=== PATIENT | female | born 1940 | race Caucasian/White ===

== ENCOUNTER 2016-08-20 17:17 | Inpatient (IN) | payer MEDICARE, MEDICAID ==
[~2016-08-20] VITALS: Ht 160 cm; Wt 70.3 kg
--- NOTE | ~2016-08-20 | PROC NOTE ---
[place], [place] PROCEDURE NOTE NAME: [facility]IS [facility]: [id number] UNIT #: [id number] ROOM: 503 DOCTOR: LILIAM RECINOS BIRTHDATE: [birth year] DOS: 08/26/2016 SUBJECTIVE: The patient is a pleasant 75-year-old female referred for modified barium swallow based on questionable aspiration. The patient currently has fever, chills, headache, cough, some abdominal pain. She reports that she chokes easily, yesterday at bedside, she reported she does not choke daily or weekly but she does have consistencies going down "wrong pipe". Chest x-ray indicated pathological condition of the lungs, it mentioned increased airspace. There was a note of right middle lobe pneumonia. She has a background history of sepsis, UTI, COPD, GERD, diabetes. She is currently on 1887 diet. The patient reports she has had three strokes in the past. Her last one was in June 2013. METHODS AND MATERIALS: The patient was viewed in the lateral plane for fluoroscopy and the study was done in conjunction with Dr. Swenson. She was able to follow conversation and commands. She was able to independently feed herself thin liquid via straw sugar free pudding via teaspoon and roll coated with barium. The patient was in a wheelchair. She was upright at 90 degrees and had no expressive language deficit. ORAL PHASE: The patient demonstrated adequate oral phase with all consistencies there was very mild delay in the initial oral preparation when she took a sip out of the straw, but this was suspected due to her unsureness of when to swallow. On sequential swallows of liquid via straw patient demonstrated timely adequate bolus formation transfer of a bolus in her tongue to push the bolus into the pharynx. Diagonal vertical mastication was noted on the solid she had good oral sensory awareness and no significant oral residue. PHARYNGEAL PHASE: The patient demonstrated what was judged by the METALLURGICAL ENGINEER has very slightly reduced laryngeal elevation; however, it did not affect airway protection or safety of the swallow. The patient demonstrated no penetration or aspiration during this modified barium swallow and no significant residue in the pharynx. RECOMMENDATIONS AND IMPRESSION: Based on the above, the patient demonstrated functional oral and pharyngeal phases with all consistencies noted above. Therapy is not recommended and diet modifications are not recommended at this time as she is currently on a regular diet and seems to be tolerating. [place], [place] PROCEDURE NOTE NAME: NAMRATA LUIS UNIT #: [id number] ROOM: 503 DOCTOR: LILIAM RECINOS BIRTHDATE: [birth year] LILIAM RECINOS CM:PROCNOTE:PROCEDURE NOTE 1037 [id number] LILIAM RECINOS
--- NOTE | ~2016-08-20 | PR ---
[place], [place] PROGRESS NOTE [id number] UNIT #: [id number] ROOM: 503 DOCTOR: LAKISHA ARSHAD MD BIRTHDATE: [birth year] DOS: 08/23/2016 REASON FOR FOLLOWUP: Persistent fever. SUBJECTIVE: The patient is still spiking fever, T-max of 101.4 overnight, dry cough. REVIEW OF SYSTEMS: Otherwise is negative, unless otherwise specified in the HPI. PHYSICAL EXAMINATION: VITAL SIGNS: Showed a temperature of 98.2, T-max of 101 overnight, heart rate of 110, blood pressure of 143/68, pulse ox of 100 on 2.5 liters of nasal cannula oxygen, respiratory rate of 20. GENERAL APPEARANCE: Awake, alert, oriented to time, place and person. No acute distress, no neck stiffness. HEENT: Oral cavity moist. NECK: Supple, no JVD. HEART: Regular rate and rhythm. S1, S2 normal. No murmurs, gallops or rubs. LUNGS: Clear to auscultation, equal bilaterally. ABDOMEN: Soft, nontender, nondistended. Bowel sounds heard. EXTREMITIES: Warm to touch. Pulses palpated bilaterally. ABDOMEN: Soft, nontender, no distention. Bowel sounds heard. No CVA tenderness. LABORATORY DATA: Reviewed. WBC of 14.3 on admission, 8.9 now, hemoglobin of 11.1, platelets 248. She has monocytosis. Sed rate 80. Urinalysis unremarkable. Chemistry showing a BUN of 11, creatinine of 0.96. Lactic acid was normal. DIAGNOSTIC DATA: Chest x-ray reviewed with emphysematous changes. CAT scan of the chest showing right middle lobe infiltrate versus atelectasis. ASSESSMENT AND PLAN: 1. Persistent fever. This is patient's third admission in the last three months again for symptoms of fever and increased frequency of urination with concerns for UTI. She had always been treated in the past with empiric antibiotics with improvement of some of her symptoms. Now, she is again admitted with the same. She used to work in a [employer] in the past and had negative TB test in the past. We will get TB QuantiFERON Gold test. If she can give us the sputum sample that would be great, but she states she is not able to do so as she only has a dry cough. We will also repeat blood cultures today now that she feels like she is spiking fever and she has chills. She had a CAT scan from April, which was unremarkable at that time. It is possible that this is just a viral infection on top of her COPD. The rapid influenza A and B is negative, but given the poor specificity of the rapid fluid test and other tests sent out, I would put her on Tamiflu presumptively for 5 days. 2. COPD. Thank you for this consult. I will continue to follow. [place], [place] PROGRESS NOTE NAME: NAMRATA LUIS Gregorio UNIT #: [id number] ROOM: [facility] DOCTOR: LAKISHA ARSHAD MD BIRTHDATE: [birth year] LAKISHA ARSHAD MD CM:PNTRANS 1708 [id number] LAKISHA ARSHAD MD 10/01/16 1402 interface
[~2016-08-20 17:17] MED LIST: AMOXICILLIN500 M2 PO; AMOXIL500 M1 PO; APIDRA SOLOS100 U/ML SC; ASPI-COR81 M1 PO; ASPIRIN81 M1 PO; CEFDINIR300 MG PO; CEFUROXIME AXE250 MG PO; CIPRO250 MG PO; CIPROFLOXACIN500 MG PO; CYMBALTA60 MG PO; DAYPRO600 M1 PO; EAC MC; GLIPIZIDE5 MG PO; GLYBURIDE1 CRY PO; GLYBURIDE1.25 MG PO; HYDROCODONE BIT1 T11 PO; KEFLEX500 MG PO; LISINOPRIL10 M1 PO; LISINOPRIL5 MG PO; METFORMIN500 MG PO; MOTRIN800 MG PO; NEURONTIN300 MG PO; NORCO 5-325 TA1 EACH PO; NYSTATIN100000 U/M PO; ONE TOUCH ULTRA SC; PEN-VEE K500 MG PO; PREDNICOT20 MG PO; PREDNISONE10 MG PO; ROBITUSSIN AC 110 ML PO; TEST STRIPS1 EACH DIAG; TOUJEO300 U/ML SC; TRAMADOL HCL50 MG PO; VENTOLIN H0.09 MG/AC INH; VICODIN 5/500 505 MG; VICODIN 5/500 505 MG PO; VICODIN 500 MG-1 TAB PO; VICTOZA 3-PAK6 MG/ML SC; VICTOZA6 MG/ML SC; VISTARIL25 M2 PO; VISTARIL50 MG PO; VITAMIN D31000 IU PO; VITAMIN D5000 UNIT PO; ZITHROMAX Z PA250 MG PO; ZOLOFT50 MG PO; [UNRECOGNIZED DRUG - SUPPLY] TP
[2016-08-20 17:23] VITALS: BP 179/74
[2016-08-20] MEDS ORDERED: TOUJEO300 U/ML SC (18:04)
[2016-08-20 18:06] LABS: BASO # 0.1 10*3/uL (0.0-0.1); BASO % 0.4 % (0.0-1.0); EOS # 0.2 10*3/uL (0.0-0.4); EOS % 1.1 % (1.0-4.0); HEMATOCRIT 37.9 % (37.0-47.0); HEMOGLOBIN 12.2 g/dl (12.0-16.0); IG # 0.1 10*3/uL (0.0-0.1); LYMPH # 1.6 10*3/uL (1.3-4.4); LYMPH % 11.4 % (27.0-41.0); MEAN CORPUSCULAR HGB CONC 32.2 g/dl (33.0-37.0); MEAN PLATELET VOLUME 9.8 fl (9.6-12.3); MONO % 7.4 % (3.0-9.0); NEUT # 10.8 10*3/uL (2.3-7.9); NEUT % 79.1 % (47.0-73.0); PLATELET COUNT AUTOMATED 203 10*3/uL (130-400); RED BLOOD COUNT 4.21 10*6/uL (4.10-5.10); RED CELL DISTRI WIDTH 13.2 % (0-14.5); WHITE BLOOD COUNT 13.7 10*3/uL (4.8-10.8)
[2016-08-20 18:16] LABS: INTERNATIONAL NORM RATIO 0.9 (2.0-3.5)
[2016-08-20 18:29] LABS: ALBUMIN 3.3 gm/dl (3.1-4.5); ALKALINE PHOSPHATASE 79 U/L (45-117); BILIRUBIN, TOTAL 0.3 mg/dl (0.2-1.0); BUN 14 mg/dl (7-24); CARBON DIOXIDE 31 mmol/L (21-32); CHLORIDE 98 mmol/L (98-107); EST GLOM FILT AFRICAN AMERICAN > 60 ml/min; GLUCOSE 172 mg/dL (65-99); POTASSIUM 3.8 mmol/L (3.5-5.1); SGOT/AST 10 IU/L (3-35); SGPT/ALT 15 U/L (12-78); SODIUM 137 mmol/L (136-145)
[2016-08-20 18:30] LABS: CKMB < 0.5 ng/ml (0.5-3.6); CPK 44 U/L (26-192); MAGNESIUM 1.5 mg/dL (1.5-2.1)
[2016-08-20 19:10] LABS: BILIRUBIN NEGATIVE (NEGATIVE); BLOOD TRACE-INTACT (NEGATIVE); CLARITY SL CLOUDY (CLEAR); COLOR YELLOW (YELLOW); GLUCOSE NEGATIVE (NEGATIVE); KETONE NEGATIVE (NEGATIVE); LEUKO ESTERASE 2+ (NEGATIVE); NITRITE NEGATIVE (NEGATIVE); PH 5.5 (5.0-9.0); PROTEIN NEGATIVE (NEGATIVE); SPECIFIC GRAVITY <= 1.005 (1.005-1.030); UROBILINOGEN 0.2 E.U./dl (0.2-1.0)
[2016-08-20 19:16] LABS: BACTERIA 2+; RBC 0-2 rbc/hpf (0-2); WBC 16-20 wbc/hpf (0-5)
[2016-08-20 19:17] LABS: URINE REFLEX COMMENT YES (NO)
[2016-08-20 19:31] VITALS: BP 127/54
[2016-08-20 20:23] VITALS: BP 129/43
[2016-08-21] VITALS: BP 145/56
[2016-08-21 00:52] LABS: CKMB < 0.5 ng/ml (0.5-3.6); CPK 47 U/L (26-192)
[2016-08-21 06:09] LABS: BASO % 0.3 % (0.0-1.0); EOS # 0.2 10*3/uL (0.0-0.4); EOS % 1.5 % (1.0-4.0); HEMATOCRIT 37.1 % (37.0-47.0); HEMOGLOBIN 11.6 g/dl (12.0-16.0); IG # 0.1 10*3/uL (0.0-0.1); LYMPH # 2.6 10*3/uL (1.3-4.4); LYMPH % 18.3 % (27.0-41.0); MEAN CELL VOLUME 91.8 fl (81.0-99.0); MEAN CORPUSCULAR HGB 28.7 pg (27.0-31.0); MEAN CORPUSCULAR HGB CONC 31.3 g/dl (33.0-37.0); MEAN PLATELET VOLUME 9.9 fl (9.6-12.3); MONO # 1.5 10*3/uL (0.1-1.0); MONO % 10.2 % (3.0-9.0); NEUT # 9.9 10*3/uL (2.3-7.9); PLATELET COUNT AUTOMATED 214 10*3/uL (130-400); RED BLOOD COUNT 4.04 10*6/uL (4.10-5.10); WHITE BLOOD COUNT 14.3 10*3/uL (4.8-10.8)
[2016-08-21 06:27] LABS: CPK 48 U/L (26-192)
[2016-08-21 06:29] LABS: CKMB < 0.5 ng/ml (0.5-3.6)
[2016-08-21 06:41] LABS: BUN 11 mg/dl (7-24); CARBON DIOXIDE 32 mmol/L (21-32); CHLORIDE 103 mmol/L (98-107); EST GLOM FILT AFRICAN AMERICAN > 60 ml/min; GLUCOSE 118 mg/dL (65-99); POTASSIUM 3.8 mmol/L (3.5-5.1); SODIUM 142 mmol/L (136-145)
[2016-08-21 06:51] LABS: PROTHROMBIN TIME 10.2 SECONDS (9.0-12.4)
[2016-08-21 08:00] VITALS: BP 144/58
[2016-08-21 12:00] VITALS: BP 149/55
[2016-08-21 12:34] LABS: CKMB < 0.5 ng/ml (0.5-3.6); CPK 50 U/L (26-192)
[2016-08-21 16:00] VITALS: BP 118/58
[2016-08-21 20:00] VITALS: BP 130/59
[2016-08-22] VITALS: BP 155/58
[2016-08-22 04:00] VITALS: BP 151/99
[2016-08-22 07:05] LABS: BASO % 0.3 % (0.0-1.0); EOS # 0.3 10*3/uL (0.0-0.4); EOS % 3.6 % (1.0-4.0); HEMATOCRIT 33.2 % (37.0-47.0); HEMOGLOBIN 10.2 g/dl (12.0-16.0); IG # 0.1 10*3/uL (0.0-0.1); LYMPH # 1.7 10*3/uL (1.3-4.4); LYMPH % 18.1 % (27.0-41.0); MEAN CORPUSCULAR HGB 28.6 pg (27.0-31.0); MEAN CORPUSCULAR HGB CONC 30.7 g/dl (33.0-37.0); MEAN PLATELET VOLUME 10.1 fl (9.6-12.3); MONO % 11.4 % (3.0-9.0); NEUT % 66.1 % (47.0-73.0); PLATELET COUNT AUTOMATED 220 10*3/uL (130-400); RED BLOOD COUNT 3.57 10*6/uL (4.10-5.10); RED CELL DISTRI WIDTH 13.1 % (0-14.5); WHITE BLOOD COUNT 9.1 10*3/uL (4.8-10.8)
[2016-08-22 08:00] VITALS: BP 128/60
[2016-08-22 12:00] VITALS: BP 136/80
[2016-08-22 16:00] VITALS: BP 146/51
[2016-08-22 20:00] VITALS: BP 150/50
[2016-08-23] VITALS: BP 104/51; BP 125/42
[2016-08-23 06:43] LABS: BASO % 0.3 % (0.0-1.0); EOS # 0.4 10*3/uL (0.0-0.4); EOS % 3.9 % (1.0-4.0); HEMATOCRIT 35.8 % (37.0-47.0); HEMOGLOBIN 11.1 g/dl (12.0-16.0); IG # 0.1 10*3/uL (0.0-0.1); LYMPH # 1.6 10*3/uL (1.3-4.4); LYMPH % 18.2 % (27.0-41.0); MEAN CELL VOLUME 92.5 fl (81.0-99.0); MEAN CORPUSCULAR HGB 28.7 pg (27.0-31.0); MEAN PLATELET VOLUME 9.9 fl (9.6-12.3); MONO # 1.1 10*3/uL (0.1-1.0); MONO % 12.5 % (3.0-9.0); NEUT # 5.7 10*3/uL (2.3-7.9); NEUT % 64.4 % (47.0-73.0); PLATELET COUNT AUTOMATED 248 10*3/uL (130-400); RED BLOOD COUNT 3.87 10*6/uL (4.10-5.10); RED CELL DISTRI WIDTH 13.1 % (0-14.5); WHITE BLOOD COUNT 8.9 10*3/uL (4.8-10.8)
[2016-08-23 08:00] VITALS: BP 142/43
[2016-08-23 16:00] VITALS: BP 143/68
[2016-08-23 20:00] VITALS: BP 136/74
[2016-08-24] VITALS: BP 127/65
[2016-08-24 05:49] LABS: BUN 9 mg/dl (7-24); CARBON DIOXIDE 32 mmol/L (21-32); CHLORIDE 101 mmol/L (98-107); EST GLOM FILT AFRICAN AMERICAN > 60 ml/min; GLUCOSE 195 mg/dL (65-99); POTASSIUM 4.2 mmol/L (3.5-5.1); SODIUM 142 mmol/L (136-145)
[2016-08-24 06:08] LABS: BASO % 0.3 % (0.0-1.0); EOS # 0.4 10*3/uL (0.0-0.4); EOS % 3.7 % (1.0-4.0); HEMATOCRIT 30.9 % (37.0-47.0); HEMOGLOBIN 9.5 g/dl (12.0-16.0); IG # 0.1 10*3/uL (0.0-0.1); LYMPH % 21.4 % (27.0-41.0); MEAN CORPUSCULAR HGB 28.3 pg (27.0-31.0); MEAN CORPUSCULAR HGB CONC 30.7 g/dl (33.0-37.0); MEAN PLATELET VOLUME 10.1 fl (9.6-12.3); MONO # 1.4 10*3/uL (0.1-1.0); MONO % 14.3 % (3.0-9.0); NEUT # 5.7 10*3/uL (2.3-7.9); NEUT % 59.8 % (47.0-73.0); PLATELET COUNT AUTOMATED 232 10*3/uL (130-400); RED BLOOD COUNT 3.36 10*6/uL (4.10-5.10); RED CELL DISTRI WIDTH 13.2 % (0-14.5); WHITE BLOOD COUNT 9.5 10*3/uL (4.8-10.8)
[2016-08-24 08:00] VITALS: BP 134/50
[2016-08-24 12:00] VITALS: BP 131/59
[2016-08-24 16:00] VITALS: BP 129/51
[2016-08-24 20:00] VITALS: BP 148/58
[2016-08-25] VITALS: BP 151/54
[2016-08-25 08:00] VITALS: BP 124/62
[2016-08-25 12:00] VITALS: BP 128/50
[2016-08-25 16:00] VITALS: BP 125/51; BP 132/73
[2016-08-25 20:00] VITALS: BP 125/77
[2016-08-26] VITALS: BP 132/71
[2016-08-26 06:42] LABS: BASO % 0.5 % (0.0-1.0); EOS # 0.5 10*3/uL (0.0-0.4); EOS % 5.9 % (1.0-4.0); HEMOGLOBIN 9.4 g/dl (12.0-16.0); IG # 0.1 10*3/uL (0.0-0.1); LYMPH # 2.3 10*3/uL (1.3-4.4); LYMPH % 26.5 % (27.0-41.0); MEAN CELL VOLUME 92.3 fl (81.0-99.0); MEAN CORPUSCULAR HGB CONC 30.3 g/dl (33.0-37.0); MEAN PLATELET VOLUME 9.9 fl (9.6-12.3); MONO # 1.2 10*3/uL (0.1-1.0); MONO % 13.5 % (3.0-9.0); NEUT # 4.5 10*3/uL (2.3-7.9); NEUT % 52.2 % (47.0-73.0); PLATELET COUNT AUTOMATED 313 10*3/uL (130-400); RED BLOOD COUNT 3.36 10*6/uL (4.10-5.10); RED CELL DISTRI WIDTH 13.2 % (0-14.5); WHITE BLOOD COUNT 8.6 10*3/uL (4.8-10.8)
[2016-08-26 08:00] VITALS: BP 138/50
[2016-08-26 12:00] VITALS: BP 144/59
[2016-08-26] MEDS ORDERED: LEVAQUIN750 M1 PO (13:20)
[2016-08-26] MEDS ORDERED: TAMIFLU 75MG CA75 MG PO (13:20)
[2016-08-29 12:08] LABS: MITOGEN VALUE 1.15 IU/mL (.); NIL VALUE 0.03 IU/mL (.); TB Ag VALUE 0.03 IU/mL (.); TB GOLD Negative (Negative)
[2016-10-26] MEDS ORDERED: CEPHALEXIN500 M1 PO (15:42)
== END 2016-08-26 14:42 | disposition home or self-care (01) | DRG 871 ==
LOC: ED 17:17 → EDHOLD 20:24 → 5E 20:24
PROVIDERS: Emergency Medicine; Family Medicine; Internal Medicine; Internal Medicine Hospice and Palliative Medicine; Internal Medicine Infectious Disease
PROC: BD1BYZZ Fluoroscopy of Mouth/Oropharynx using Other Contrast (ICD-10-PCS; principal; 2016-08-26)
DX: A41.9 Sepsis, unspecified organism (principal); J18.9 Pneumonia, unspecified organism; J96.20 Acute and chronic respiratory failure, unspecified whether with hypoxia or hypercapnia; N39.0 Urinary tract infection, site not specified; E11.65 Type 2 diabetes mellitus with hyperglycemia; J43.9 Emphysema, unspecified; K21.9 Gastro-esophageal reflux disease without esophagitis; E78.5 Hyperlipidemia, unspecified; F41.9 Anxiety disorder, unspecified; I10 Essential (primary) hypertension; Z99.81 Dependence on supplemental oxygen; Z79.82 Long term (current) use of aspirin; Z79.4 Long term (current) use of insulin; Z79.899 Other long term (current) drug therapy; Z88.5 Allergy status to narcotic agent; Z88.8 Allergy status to other drugs, medicaments and biological substances; Z90.710 Acquired absence of both cervix and uterus; Z98.890 Other specified postprocedural states; Z83.3 Family history of diabetes mellitus; Z83.6 Family history of other diseases of the respiratory system

== ENCOUNTER 2016-11-22 18:22 | Inpatient (IN) | payer MEDICARE, MEDICAID ==
[~2016-11-22] VITALS: Ht 160 cm; Wt 71.2 kg
[2016-11-22] VITALS (9 sets, daily range): BP systolic 122–200; BP diastolic 51–70
[~2016-11-22 18:22] MED LIST changes: +CEPHALEXIN500 M1 PO; +LEVAQUIN750 M1 PO; +TAMIFLU 75MG CA75 MG PO
[2016-11-22] MEDS ORDERED: LANTUS100 U/ML SC (18:46)
[2016-11-22 19:46] LABS: BASO % 0.3 % (0.0-1.0); EOS # 0.2 10*3/uL (0.0-0.4); EOS % 1.1 % (1.0-4.0); HEMATOCRIT 41.6 % (37.0-47.0); HEMOGLOBIN 13.1 g/dl (12.0-16.0); IG # 0.1 10*3/uL (0.0-0.1); LYMPH # 1.1 10*3/uL (1.3-4.4); MEAN CELL VOLUME 85.8 fl (81.0-99.0); MEAN CORPUSCULAR HGB CONC 31.5 g/dl (33.0-37.0); MEAN PLATELET VOLUME 9.8 fl (9.6-12.3); MONO # 0.8 10*3/uL (0.1-1.0); NEUT # 11.4 10*3/uL (2.3-7.9); PLATELET COUNT AUTOMATED 237 10*3/uL (130-400); RED BLOOD COUNT 4.85 10*6/uL (4.10-5.10); RED CELL DISTRI WIDTH 14.7 % (0-14.5); WHITE BLOOD COUNT 13.6 10*3/uL (4.8-10.8)
[2016-11-22 20:03] LABS: INTERNATIONAL NORM RATIO 0.9 (2.0-3.5)
[2016-11-22 20:11] LABS: ALKALINE PHOSPHATASE 89 U/L (45-117); BILIRUBIN, TOTAL 0.2 mg/dl (0.2-1.0); BUN 13 mg/dl (7-24); CARBON DIOXIDE 32 mmol/L (21-32); CHLORIDE 96 mmol/L (98-107); CPK 49 U/L (26-192); EST GLOM FILT AFRICAN AMERICAN > 60 ml/min; GLUCOSE 162 mg/dL (65-99); POTASSIUM 4.3 mmol/L (3.5-5.1); SGOT/AST 20 IU/L (3-35); SGPT/ALT 19 U/L (12-78); SODIUM 140 mmol/L (136-145); TOTAL PROTEIN 8.3 gm/dL (6.4-8.2)
[2016-11-22 20:12] LABS: CKMB < 0.5 ng/ml (0.5-3.6); TROPONIN I < 0.015 ng/ml (<0.045)
[2016-11-22 22:05] LABS: BILIRUBIN NEGATIVE (NEGATIVE); BLOOD TRACE-INTACT (NEGATIVE); CLARITY CLEAR (CLEAR); COLOR YELLOW (YELLOW); GLUCOSE NEGATIVE (NEGATIVE); KETONE TRACE (NEGATIVE); LEUKO ESTERASE TRACE (NEGATIVE); NITRITE NEGATIVE (NEGATIVE); PROTEIN TRACE (NEGATIVE); SPECIFIC GRAVITY 1.015 (1.005-1.030); UROBILINOGEN 0.2 E.U./dl (0.2-1.0)
[2016-11-22 22:14] LABS: EPITHELIAL CELLS 0-2; RBC 0-2 rbc/hpf (0-2); URINE REFLEX COMMENT YES (NO)
[2016-11-23 06:06] LABS: CKMB 0.7 ng/ml (0.5-3.6); CPK 58 U/L (26-192)
[2016-11-23 06:11] LABS: TROPONIN I < 0.015 ng/ml (<0.045)
[2016-11-23 08:00] VITALS: BP 103/72
[2016-11-23 08:21] LABS: EOS % 0.1 % (1.0-4.0); MONO % 7.3 % (3.0-9.0)
[2016-11-23 08:25] LABS: BASO % 0.2 % (0.0-1.0); IG # 0.2 10*3/uL (0.0-0.1); LYMPH # 1.6 10*3/uL (1.3-4.4); LYMPH % 9.7 % (27.0-41.0); MEAN CORPUSCULAR HGB 27.2 pg (27.0-31.0); MEAN CORPUSCULAR HGB CONC 31.7 g/dl (33.0-37.0); MEAN PLATELET VOLUME 9.4 fl (9.6-12.3); MONO # 1.2 10*3/uL (0.1-1.0); NEUT # 13.8 10*3/uL (2.3-7.9); NEUT % 81.8 % (47.0-73.0); PLATELET COUNT AUTOMATED 185 10*3/uL (130-400); RED BLOOD COUNT 3.71 10*6/uL (4.10-5.10); RED CELL DISTRI WIDTH 14.9 % (0-14.5); WHITE BLOOD COUNT 16.8 10*3/uL (4.8-10.8)
[2016-11-23 08:26] LABS: HEMATOCRIT 31.9 % (37.0-47.0); HEMOGLOBIN 10.1 g/dl (12.0-16.0)
[2016-11-23 08:37] LABS: ALKALINE PHOSPHATASE 63 U/L (45-117); BILIRUBIN, TOTAL 0.2 mg/dl (0.2-1.0); BUN 11 mg/dl (7-24); CARBON DIOXIDE 32 mmol/L (21-32); CHLORIDE 101 mmol/L (98-107); EST GLOM FILT AFRICAN AMERICAN > 60 ml/min; GLUCOSE 145 mg/dL (65-99); POTASSIUM 4.1 mmol/L (3.5-5.1); SGOT/AST 15 IU/L (3-35); SGPT/ALT 16 U/L (12-78); SODIUM 139 mmol/L (136-145); TOTAL PROTEIN 6.3 gm/dL (6.4-8.2)
[2016-11-23 08:38] LABS: HEMOGLOBIN A1c 7.5 % (4.8-5.6)
[2016-11-23 08:39] LABS: FREE T4 0.92 ng/dl (0.76-1.46)
[2016-11-23 08:45] LABS: THYROID STIM HORMONE (HS) 1.38 uIU/ml (0.358-4.75)
[2016-11-23 12:00] VITALS: BP 104/84
[2016-11-23 12:02] LABS: CKMB 0.7 ng/ml (0.5-3.6); CPK 66 U/L (26-192)
[2016-11-23 12:04] LABS: TROPONIN I < 0.015 ng/ml (<0.045)
[2016-11-23 16:00] VITALS: BP 116/48
[2016-11-23 18:02] LABS: CKMB 0.9 ng/ml (0.5-3.6); CPK 71 U/L (26-192); TROPONIN I < 0.015 ng/ml (<0.045)
[2016-11-23 20:00] VITALS: BP 118/42
[2016-11-24] VITALS: BP 116/37
[2016-11-24 04:00] VITALS: BP 130/50
[2016-11-24 05:56] LABS: BASO % 0.3 % (0.0-1.0); EOS # 0.4 10*3/uL (0.0-0.4); EOS % 3.4 % (1.0-4.0); HEMATOCRIT 31.7 % (37.0-47.0); HEMOGLOBIN 9.9 g/dl (12.0-16.0); IG # 0.1 10*3/uL (0.0-0.1); LYMPH # 1.2 10*3/uL (1.3-4.4); LYMPH % 10.8 % (27.0-41.0); MEAN CELL VOLUME 87.8 fl (81.0-99.0); MEAN CORPUSCULAR HGB 27.4 pg (27.0-31.0); MEAN CORPUSCULAR HGB CONC 31.2 g/dl (33.0-37.0); MEAN PLATELET VOLUME 10.5 fl (9.6-12.3); MONO % 8.8 % (3.0-9.0); NEUT # 8.5 10*3/uL (2.3-7.9); NEUT % 76.2 % (47.0-73.0); PLATELET COUNT AUTOMATED 170 10*3/uL (130-400); RED BLOOD COUNT 3.61 10*6/uL (4.10-5.10); RED CELL DISTRI WIDTH 15.3 % (0-14.5); WHITE BLOOD COUNT 11.1 10*3/uL (4.8-10.8)
[2016-11-24 06:27] LABS: ALBUMIN 2.8 gm/dl (3.1-4.5); ALKALINE PHOSPHATASE 67 U/L (45-117); BILIRUBIN, TOTAL 0.3 mg/dl (0.2-1.0); BUN 16 mg/dl (7-24); CARBON DIOXIDE 34 mmol/L (21-32); CHLORIDE 103 mmol/L (98-107); CHOLESTEROL 254 mg/dL (<200); EST GLOM FILT AFRICAN AMERICAN > 60 ml/min; GLUCOSE 155 mg/dL (65-99); HDL CHOLESTEROL 34 mg/dl (40-60); LDL CHOLESTEROL 175 mg/dL (9-159); MAGNESIUM 1.6 mg/dL (1.5-2.1); PHOSPHOROUS 2.1 mg/dL (2.5-4.9); POTASSIUM 4.1 mmol/L (3.5-5.1); SGOT/AST 16 IU/L (3-35); SGPT/ALT 15 U/L (12-78); SODIUM 141 mmol/L (136-145); TOTAL PROTEIN 6.4 gm/dL (6.4-8.2); TRIGLYCERIDES 224 mg/dl (<150); VLDL CHOLESTEROL 45 mg/dL (6-40)
[2016-11-24 06:37] LABS: PROTHROMBIN TIME 10.3 SECONDS (9.0-12.4)
[2016-11-24 08:00] VITALS: BP 128/48
[2016-11-24] MEDS ORDERED: DOXYCYCLINE100 MG PO (11:36)
[2016-11-24] MEDS ORDERED: PREDNISONE10 MG PO (11:36)
[2016-11-24 12:00] VITALS: BP 135/38
== END 2016-11-24 13:00 | disposition home or self-care (01) | DRG 871 ==
LOC: ED 18:22 → EDHOLD 22:19 → 5E 22:19
PROVIDERS: Emergency Medicine; Family Medicine; Internal Medicine
DX: A41.9 Sepsis, unspecified organism (principal); J18.9 Pneumonia, unspecified organism; N39.0 Urinary tract infection, site not specified; E11.65 Type 2 diabetes mellitus with hyperglycemia; E78.2 Mixed hyperlipidemia; I10 Essential (primary) hypertension; F41.9 Anxiety disorder, unspecified; F32.9 Major depressive disorder, single episode, unspecified; K21.9 Gastro-esophageal reflux disease without esophagitis; J43.9 Emphysema, unspecified; Z90.710 Acquired absence of both cervix and uterus; Z87.891 Personal history of nicotine dependence; Z83.6 Family history of other diseases of the respiratory system; Z84.0 Family history of diseases of the skin and subcutaneous tissue; Z88.6 Allergy status to analgesic agent; Z99.81 Dependence on supplemental oxygen; Z91.041 Radiographic dye allergy status; Z88.8 Allergy status to other drugs, medicaments and biological substances; Z79.82 Long term (current) use of aspirin; Z79.4 Long term (current) use of insulin; Z79.899 Other long term (current) drug therapy

== ENCOUNTER → 2017-06-03 | Outpatient (CLI) | payer MEDICARE ==
[~2017-06-03] MED LIST changes: +DOXYCYCLINE100 MG PO; +LANTUS100 U/ML SC
== END | disposition home or self-care (01) ==
LOC: MAMMO 05-19 14:20
DX: Z12.31 Encounter for screening mammogram for malignant neoplasm of breast (principal)

== ENCOUNTER 2017-10-06 11:40 | Emergency (ER) | payer MEDICARE ==
[~2017-10-06] VITALS: Ht 160 cm; Wt 68.0 kg
[2017-10-06] MEDS ORDERED: GLIPIZIDE10 M2 PO (11:56)
[2017-10-06] MEDS ORDERED: ALL DAY ALLERGY10 MG PO (11:56)
[2017-10-06 13:10] LABS: BASO % 0.3 % (0.0-1.0); EOS # 0.2 10*3/uL (0.0-0.4); EOS % 2.8 % (1.0-4.0); HEMATOCRIT 35.5 % (37.0-47.0); HEMOGLOBIN 10.9 g/dl (12.0-16.0); LYMPH # 1.5 10*3/uL (1.3-4.4); LYMPH % 24.9 % (27.0-41.0); MEAN CELL VOLUME 90.1 fl (81.0-99.0); MEAN CORPUSCULAR HGB 27.7 pg (27.0-31.0); MEAN CORPUSCULAR HGB CONC 30.7 g/dl (33.0-37.0); MEAN PLATELET VOLUME 9.4 fl (9.6-12.3); MONO # 0.4 10*3/uL (0.1-1.0); MONO % 6.5 % (3.0-9.0); NEUT % 65.3 % (47.0-73.0); PLATELET COUNT AUTOMATED 195 10*3/uL (130-400); RED BLOOD COUNT 3.94 10*6/uL (4.10-5.10); RED CELL DISTRI WIDTH 13.3 % (0-14.5); WHITE BLOOD COUNT 6.1 10*3/uL (4.8-10.8)
[2017-10-06 13:26] LABS: ALBUMIN 3.8 gm/dl (3.1-4.5); ALKALINE PHOSPHATASE 83 U/L (45-117); BUN 15 mg/dl (7-24); CHLORIDE 94 mmol/L (98-107); CREATININE 0.96 mg/dL (0.55-1.02); POTASSIUM 4.7 mmol/L (3.5-5.1); SGOT/AST 14 IU/L (3-35); SGPT/ALT 18 U/L (12-78); SODIUM 138 mmol/L (136-145); TOTAL PROTEIN 8.1 gm/dL (6.4-8.2)
[2017-10-06] MEDS ORDERED: VIBRAMYCIN100 MG PO (14:23)
[2017-10-06] MEDS ORDERED: DELTASONE20 M1 PO (14:23)
[2017-10-06 14:34] VITALS: BP 145/55
== END 2017-10-06 14:45 | disposition home or self-care (01) ==
LOC: ED 11:40
PROVIDERS: Physician Assistant
DX: J06.9 Acute upper respiratory infection, unspecified (principal); J44.1 Chronic obstructive pulmonary disease with (acute) exacerbation; Z91.040 Latex allergy status; Z88.6 Allergy status to analgesic agent; Z88.8 Allergy status to other drugs, medicaments and biological substances; Z79.82 Long term (current) use of aspirin; Z79.899 Other long term (current) drug therapy; Z87.891 Personal history of nicotine dependence

== ENCOUNTER 2017-11-23 10:52 | Emergency (ER) | payer MEDICARE ==
[~2017-11-23] VITALS: Wt 70.3 kg
[~2017-11-23 10:52] MED LIST changes: +ALL DAY ALLERGY10 MG PO; +DELTASONE20 M1 PO; +GLIPIZIDE10 M2 PO; +VIBRAMYCIN100 MG PO
[2017-11-23 11:48] LABS: BASO % 0.6 % (0.0-1.0); EOS # 0.2 10*3/uL (0.0-0.4); EOS % 3.4 % (1.0-4.0); HEMATOCRIT 35.7 % (37.0-47.0); HEMOGLOBIN 11.1 g/dl (12.0-16.0); LYMPH # 1.6 10*3/uL (1.3-4.4); LYMPH % 29.3 % (27.0-41.0); MEAN CELL VOLUME 90.6 fl (81.0-99.0); MEAN CORPUSCULAR HGB 28.2 pg (27.0-31.0); MEAN CORPUSCULAR HGB CONC 31.1 g/dl (33.0-37.0); MONO # 0.5 10*3/uL (0.1-1.0); NEUT % 56.1 % (47.0-73.0); PLATELET COUNT AUTOMATED 198 10*3/uL (130-400); RED BLOOD COUNT 3.94 10*6/uL (4.10-5.10); RED CELL DISTRI WIDTH 14.2 % (0-14.5); WHITE BLOOD COUNT 5.3 10*3/uL (4.8-10.8)
[2017-11-23 12:04] LABS: ALBUMIN 3.9 gm/dl (3.1-4.5); ALKALINE PHOSPHATASE 71 U/L (45-117); BUN 15 mg/dl (7-24); CHLORIDE 99 mmol/L (98-107); CREATININE 0.97 mg/dL (0.55-1.02); LIPASE 175 U/L (73-393); POTASSIUM 3.7 mmol/L (3.5-5.1); SGOT/AST 16 IU/L (3-35); SGPT/ALT 19 U/L (12-78); SODIUM 138 mmol/L (136-145); TOTAL PROTEIN 7.4 gm/dL (6.4-8.2)
[2017-11-23 12:05] LABS: TROPONIN I < 0.015 ng/ml (<0.045)
[2017-11-23 13:10] LABS: BILIRUBIN NEGATIVE (NEGATIVE); BLOOD NEGATIVE (NEGATIVE); CLARITY CLEAR (CLEAR); COLOR YELLOW (YELLOW); GLUCOSE NEGATIVE (NEGATIVE); KETONE NEGATIVE (NEGATIVE); LEUKO ESTERASE 2+ (NEGATIVE); NITRITE NEGATIVE (NEGATIVE); UROBILINOGEN 0.2 E.U./dl (0.2-1.0)
[2017-11-23 13:19] LABS: RBC 0-2 rbc/hpf (0-2)
[2017-11-23] MEDS ORDERED: MACROBID100 M1 PO (14:20)
[2017-11-23 14:40] VITALS: BP 169/51
== END 2017-11-23 14:31 | disposition home or self-care (01) ==
LOC: ED 10:52
PROVIDERS: Emergency Medicine
DX: N39.0 Urinary tract infection, site not specified (principal); J44.9 Chronic obstructive pulmonary disease, unspecified; K21.9 Gastro-esophageal reflux disease without esophagitis; E78.5 Hyperlipidemia, unspecified; I10 Essential (primary) hypertension; E11.65 Type 2 diabetes mellitus with hyperglycemia; Z99.81 Dependence on supplemental oxygen; Z90.89 Acquired absence of other organs; Z90.710 Acquired absence of both cervix and uterus; Z98.890 Other specified postprocedural states; Z87.891 Personal history of nicotine dependence; Z79.899 Other long term (current) drug therapy; Z91.041 Radiographic dye allergy status; Z88.5 Allergy status to narcotic agent; Z79.82 Long term (current) use of aspirin

== ENCOUNTER → 2018-02-01 | Outpatient (CLI) | payer MEDICARE, MEDICAID ==
[~2018-02-01] MED LIST changes: +MACROBID100 M1 PO
== END | disposition home or self-care (01) ==
LOC: RAD 10:26
DX: M19.011 Primary osteoarthritis, right shoulder (principal)

== ENCOUNTER 2018-08-19 12:28 | Inpatient (IN) | payer OTHER, MEDICAID ==
[~2018-08-19] VITALS: Ht 160 cm; Wt 75.3 kg
--- NOTE | ~2018-08-19 | EKG ---
[place], [place] ELECTROCARDIOGRAM REPORT NAME: NAMRATA LUIS UNIT #: [id number] ROOM: 505 DOCTOR: FOX DRAFT REPORT BIRTHDATE: [birth year] [facility] Test Date: 2018-08-19 Test Time: 19:32:16 Pat Name: NAMRATA LUIS Department: Room: 505 2 Gender: F Advertisement Distributor: Billy Sherman : 1940 Requested By: LATONYA FINNEGAN Order Number: [id number] Reading MD: Santosh Albarran MD Measurements Intervals [place] Rate: 92 P: 45 GA: 142 QRS: 43 QRSD: 82 T: 62 QT: 352 QTc: 436 Interpretive Statements Sinus rhythm Probable left atrial enlargement Probable anterior infarct, old Baseline wander in lead(s) I,III,aVL,aVF,V3,V4,V5,V6 Electronically Signed On 08-20-2018 10:50:52 PST by Santosh Albarran MD CM:EKGRPT:ELECTROCARDIOGRAM REPORT 31 1050 LATONYA ZALDIVAR DRAFT REPORT LATONYA FINNEGAN DO
--- NOTE | ~2018-08-19 | PR ---
[place], [place] PROGRESS NOTE NAME: NAMRATA LUIS UNIT #: [id number] ROOM: 505 DOCTOR: AMMON MC MD BIRTHDATE: [birth year] DOS: 08/21/2018 REASON FOR VISIT: The patient with chest pain, elevated troponin. HISTORY OF PRESENT ILLNESS: The patient denies any chest pain. No shortness of breath, no dizziness, no PND, no orthopnea. Her breathing is much better. No fever or chills. REVIEW OF SYSTEMS: Review of the 8 systems negative except as mentioned above. RHYTHM STRIPS: The patient in sinus rhythm. PHYSICAL EXAMINATION: VITAL SIGNS: Blood pressure 140/58, pulse 60, respiration is 18. GENERAL: Alert, comfortable, in no acute distress. NECK: Supple, no distended neck veins, no carotid bruit. CHEST: Symmetrical, nontender. LUNGS: A few scattered rhonchi. HEART: Regular rhythm, no S3. Grade 1/6 systolic murmur. ABDOMEN: Benign, nontender. Bowel sounds normal. EXTREMITIES: Show trace edema. Distal pulses are palpable. SKIN: Warm and dry. No cyanosis, no clubbing. RECTAL: Deferred. MEDICATIONS AND ALLERGIES: Reviewed. IMPRESSION: 1. Borderline elevation of troponin, probably due to renal insufficiency. 2. Intermittent chest pains, currently stable. 3. Hypertension. 4. Pneumonia. 5. Chronic respiratory failure with home oxygen. 6. Diabetes type 2. RECOMMENDATIONS: 1. Continue current medications including aspirin, beta sigifredo, statin. 2. Lexiscan stress test on Thursday. Hopefully by then, she will feel better from a pneumonia standpoint. 3. Her 2D echo is unremarkable. 4. There is no family at bedside at the time of examination. [place], [place] PROGRESS NOTE NAME: NAMRATA LUIS UNIT #: [id number] ROOM: 505 DOCTOR: AMMON MC MD BIRTHDATE: [birth year] AMMON MC MD CM:PNTRANS 25 [id number] AMMON MC MD 10/05/18 0938 interface
--- NOTE | ~2018-08-19 | EKG ---
[place], [place] ELECTROCARDIOGRAM REPORT NAME: NAMRATA LUIS UNIT #: [id number] ROOM: 505 DOCTOR: FOX DRAFT REPORT BIRTHDATE: [birth year] [facility] Test Date: 2018-08-19 Test Time: 12:44:42 Pat Name: NAMRATA LUIS Department: Room: 505 Gender: F Chemical Equipment Repairer: EKG.DC : 1940 Requested By: KERI KRUEGER Order Number: [id number] Reading MD: Santosh Albarran MD Measurements Intervals [place] Rate: 80 P: 0 NM: 111 QRS: 138 QRSD: 140 T: 146 QT: 369 QTc: 426 Interpretive Statements Right and left arm electrode reversal, interpretation assumes no reversal Sinus rhythm Borderline short NM interval Probable left atrial enlargement Nonspecific intraventricular conduction delay Abnormal T, consider ischemia, lateral leads Electronically Signed On 08-20-2018 10:48:08 PST by Santosh Albarran MD CM:EKGRPT:ELECTROCARDIOGRAM REPORT [id number] 1048 KERI ZALDIVAR DRAFT REPORT KERI KRUEGER DO
--- NOTE | ~2018-08-19 | PR ---
[place], [place] PROGRESS NOTE NAME: NAMRATA LUIS UNIT #: [id number] ROOM: 505 DOCTOR: HOLLI GARCIA MD BIRTHDATE: [birth year] DOS: 08/23/2018 CARDIOLOGY PROGRESS NOTE SUBJECTIVE: The patient was seen in the Cardiology Department today, 08/23/2018, prior to her stress test. She is a 77-year-old woman who has no previous history of heart disease. She presented to the hospital on this occasion with pneumonia, but was found to have chest discomfort and a mild increase in her troponin as well. The pattern of the troponin elevation was not consistent with an acute myocardial infarction; however, it was felt appropriate that we evaluate her heart further with a pharmacologic stress test prior to her discharge given her other medical problems and risk factors. She is feeling better and breathing better. She no longer has any chest discomfort. PHYSICAL EXAMINATION: VITAL SIGNS: Today her pulse is 63 and regular, blood pressure is 147/55. She is afebrile. NECK: Supple. She has no jugular distention. Carotids are full. I heard no bruits. LUNGS: Respirations are unlabored. Her chest is clear. HEART: Has regular rhythm and S4 gallop. ABDOMEN: Soft. EXTREMITIES: Showed no edema. DIAGNOSTIC DATA: The resting electrocardiogram shows no acute changes. IMPRESSION: 1. Borderline elevation of troponin, probably due to stress injury. 2. Pneumonia. 3. Atypical chest pain. 4. Hypertension. 5. Type 2 diabetes mellitus. PLAN: We will proceed with a pharmacologic stress test. Further recommendations will depend upon the results of the stress test. In the interim, we will continue risk factor modification therapies. We thank the hospitalist physicians for asking our advice regarding her care. [place], [place] PROGRESS NOTE NAME: NAMRATA LUIS UNIT #: [id number] ROOM: 505 DOCTOR: HOLLI GARCIA MD BIRTHDATE: [birth year] HOLLI GARCIA MD CM:PNTRANS 1207 1735 HOLLI GARCIA MD 08/23/18 173 interface
--- NOTE | ~2018-08-19 | PR ---
[place], [place] PROGRESS NOTE NAME: NAMRATA LUIS UNIT #: [id number] ROOM: 505 DOCTOR: AMMON MC MD BIRTHDATE: [birth year] DOS: 08/22/2018 REASON FOR VISIT: Elevated troponin and chest pain. HISTORY OF PRESENT ILLNESS: The patient is feeling better. Her breathing is much better. Denies any chest pain or palpitation, no dizziness, no edema, no orthopnea. REVIEW OF SYSTEMS: Review of the 8 systems negative except as mentioned above. RHYTHM STRIPS: The patient was in sinus rhythm. PHYSICAL EXAMINATION: VITAL SIGNS: Blood pressure 170/64, pulse 78, respiratory rate of 15. GENERAL: Alert, comfortable, in no acute distress. HEAD AND NECK: Pupils are round and equal, no jaundice. Tongue was moist and pharynx clear. NECK: Supple, no distended neck veins, no carotid bruit. CHEST: Symmetrical, nontender. LUNGS: Few scattered rhonchi, but good air entry bilaterally. HEART: Regular rhythm, no S3, no palpable thrills. ABDOMEN: Benign, nontender. Bowel sounds normal. EXTREMITIES: Showed no edema. Distal pulses palpable. SKIN: Warm and dry. No cyanosis, no clubbing. RECTAL AND GENITOURINARY: Deferred. MEDICATIONS AND LABORATORIES: Reviewed. IMPRESSION: 1. Borderline elevation of troponin, probably due to acute renal failure. 2. Pneumonia. 3. Atypical chest pains. 4. Hypertension. 5. Acute renal failure. RECOMMENDATIONS: 1. Add Norvasc 5 mg for blood pressure control and increased to 10 mg if needed. 2. Continue rest of medication. 3. Lexiscan stress test tomorrow. 4. There is no family at bedside at the time of my examination. [place], [place] PROGRESS NOTE NAME: NAMRATA LUIS UNIT #: [id number] ROOM: 505 DOCTOR: AMMON MC MD BIRTHDATE: [birth year] AMMON MC MD CM:PNTRANS 2243 0148 AMMON MC MD 08/23/18 0146 interface
[2018-08-19 12:28] VITALS: BP 99/40
[2018-08-19 12:59] LABS: BASO # 0.1 10*3/uL (0.0-0.1); BASO % 0.3 % (0.0-1.0); HEMATOCRIT 37.5 % (37.0-47.0); HEMOGLOBIN 11.6 g/dl (12.0-16.0); LYMPH # 2.2 10*3/uL (1.3-4.4); LYMPH % 9.5 % (27.0-41.0); MEAN CELL VOLUME 89.3 fl (81.0-99.0); MEAN CORPUSCULAR HGB 27.6 pg (27.0-31.0); MEAN CORPUSCULAR HGB CONC 30.9 g/dl (33.0-37.0); MEAN PLATELET VOLUME 9.8 fl (9.6-12.3); MONO # 1.2 10*3/uL (0.1-1.0); MONO % 5.2 % (3.0-9.0); NEUT # 19.2 10*3/uL (2.3-7.9); NEUT % 84.1 % (47.0-73.0); PLATELET COUNT AUTOMATED 209 10*3/uL (130-400); WHITE BLOOD COUNT 22.9 10*3/uL (4.8-10.8)
[2018-08-19 13:07] LABS: ACT PARTIAL THROMBO TIME 25.6 SECONDS (20.8-31.5)
[2018-08-19 13:14] LABS: ALBUMIN 3.3 gm/dl (3.1-4.5); CREATININE 1.46 mg/dL (0.55-1.02); POTASSIUM 3.9 mmol/L (3.5-5.1); TOTAL PROTEIN 7.2 gm/dL (6.4-8.2)
--- NOTE | 2018-08-19 13:15 | NUR ---
TRIPONIN 0.577, DR KRUEGER NOTIFIED.
[2018-08-19 13:16] LABS: TROPONIN I 0.577 ng/ml (<0.045)
--- NOTE | 2018-08-19 13:55 | NUR ---
PT UNABLE TO URINATE AT THIS TIME
--- NOTE | 2018-08-19 15:33 | NUR ---
LAB CALLED WITH CRITICAL RESULTS OF TROPONIN 0.754, DR KRUEGER NOTIFIED
[2018-08-19] MEDS ORDERED: CYCLOBENZAPRIN7.5 M2 PO (15:39)
[2018-08-19 16:00] VITALS: BP 148/58
--- NOTE | 2018-08-19 16:00 | NUR ---
A 77, admitted to , under the services of GUERLINE López DO with a diagnosis of ARF. PNEUMONITIS. Chief complaint is FLU LIKE SXS. Patient arrived via bed from ER. Monitor applied. Initial assessment completed. Vital signs taken and recorded. GUERLINE LÓPEZ DO notified of admission to the unit. Orders received. See assessment for past medical history, medications and allergies. Patient and/or family oriented to unit. [facility] visitation policy reviewed. Clothing/patient valuable form completed. LIBORIO BARAHONA
--- NOTE | 2018-08-19 16:41 | NUR ---
PATIENT MED REC IS UP TO DATE
[2018-08-19 16:54] LABS: BILIRUBIN NEGATIVE (NEGATIVE); BLOOD NEGATIVE (NEGATIVE); CLARITY CLEAR (CLEAR); COLOR YELLOW (YELLOW); GLUCOSE NEGATIVE (NEGATIVE); KETONE NEGATIVE (NEGATIVE); LEUKO ESTERASE 3+ (NEGATIVE); NITRITE NEGATIVE (NEGATIVE); PH 5.5 (5.0-9.0); UROBILINOGEN 0.2 E.U./dl (0.2-1.0)
--- NOTE | 2018-08-19 19:13 | NUR ---
PATIENT INSTRUCTED ON FLUTTER VALVE.
--- NOTE | 2018-08-19 19:49 | NUR ---
DR COCHRAN NOTIFIED OF CRITICAL LAB VALUE OF ELEVATED TROPONIN OF 0.545 NO FURTHER ORDERS AT THIS TIME.
[2018-08-19 20:00] VITALS: BP 130/62
[2018-08-20] VITALS: BP 126/55
[2018-08-20 06:28] LABS: HEMATOCRIT 36.2 % (37.0-47.0); HEMOGLOBIN 11.4 g/dl (12.0-16.0); MEAN CELL VOLUME 89.8 fl (81.0-99.0); MEAN CORPUSCULAR HGB 28.3 pg (27.0-31.0); MEAN CORPUSCULAR HGB CONC 31.5 g/dl (33.0-37.0); MEAN PLATELET VOLUME 10.1 fl (9.6-12.3); PLATELET COUNT AUTOMATED 191 10*3/uL (130-400); RED BLOOD COUNT 4.03 10*6/uL (4.10-5.10); RED CELL DISTRI WIDTH 13.7 % (0-14.5); WHITE BLOOD COUNT 15.9 10*3/uL (4.8-10.8)
[2018-08-20 06:50] LABS: PLATELET SUFFICIENCY NORMAL (NORMAL); TOTAL CELLS COUNTED 100 #CELLS
[2018-08-20 06:59] LABS: CREATININE 1.25 mg/dL (0.55-1.02); PHOSPHOROUS 3.1 mg/dL (2.5-4.9); POTASSIUM 4.6 mmol/L (3.5-5.1)
[2018-08-20 07:04] LABS: FREE T4 0.96 ng/dl (0.76-1.46); THYROID STIM HORMONE (HS) 0.42 uIU/ml (0.358-4.75)
[2018-08-20 08:00] VITALS: BP 132/54
[2018-08-20 08:00] LABS: VITAMIN D, 25-HYDROXY 33.8 ng/mL (30-100)
--- NOTE | 2018-08-20 09:00 | NUR ---
Production Bow Maker in to talk to patient. Patient states lives at home with alone. There are few steps in the home. Physician: robert hernandez [facility]acy: [facility] Home health services: none Patient's level of ADLs: INDEPENDENT Patient has working utilities: all working DME: home oxygen, portable tanks, nebulizer from [facility] Follow-up physician's appointment after d/c: will be made by hospitalist nurse director upon discharge Does patient want to access PORTAL?: no Discharge plan discussed with patient patient lives in an apartment alone, she states her daughter lives in the upstairs apartment and visits and helps her daily, patient states she is independent in adls and ambulation, she has home oxygen, portable tanks and a nebulizer from [facility]. patient states she will be going home when able. discussed with her VNA and she declines and services at this time. JUANITA FERREIRA
[2018-08-20 12:00] VITALS: BP 134/49
[2018-08-20 16:00] VITALS: BP 130/52
[2018-08-20 20:00] VITALS: BP 99/86
[2018-08-21] VITALS: BP 146/58
--- NOTE | 2018-08-21 01:34 | NUR ---
24 HR chart check completed.
[2018-08-21 06:30] LABS: BASO % 0.1 % (0.0-1.0); HEMATOCRIT 37.4 % (37.0-47.0); HEMOGLOBIN 11.3 g/dl (12.0-16.0); LYMPH # 1.6 10*3/uL (1.3-4.4); LYMPH % 7.3 % (27.0-41.0); MEAN CELL VOLUME 89.9 fl (81.0-99.0); MEAN CORPUSCULAR HGB 27.2 pg (27.0-31.0); MEAN CORPUSCULAR HGB CONC 30.2 g/dl (33.0-37.0); MEAN PLATELET VOLUME 10.3 fl (9.6-12.3); MONO # 1.1 10*3/uL (0.1-1.0); MONO % 5.2 % (3.0-9.0); NEUT # 18.5 10*3/uL (2.3-7.9); NEUT % 86.2 % (47.0-73.0); PLATELET COUNT AUTOMATED 238 10*3/uL (130-400); RED BLOOD COUNT 4.16 10*6/uL (4.10-5.10); RED CELL DISTRI WIDTH 13.9 % (0-14.5); WHITE BLOOD COUNT 21.5 10*3/uL (4.8-10.8)
[2018-08-21 07:01] LABS: BUN 30 mg/dl (7-24); CHLORIDE 102 mmol/L (98-107); CREATININE 1.03 mg/dL (0.55-1.02); POTASSIUM 4.2 mmol/L (3.5-5.1); SODIUM 138 mmol/L (136-145)
[2018-08-21 10:16] VITALS: BP 134/50
[2018-08-21 12:00] VITALS: BP 134/45
--- NOTE | 2018-08-21 13:10 | NUR ---
RECEIVED CRITICAL BLOOD GLUCOSE LEVEL FROM LAB. CALLED TO DR DUNCAN. NO NEW ORDERS RECEIVED.
[2018-08-21 16:00] VITALS: BP 138/60
[2018-08-21 20:00] VITALS: BP 139/45
[2018-08-22] VITALS: BP 172/64
--- NOTE | 2018-08-22 01:01 | NUR ---
Requested and medicated with Restoril to aid sleep. Restoril effective, resting quietly, resp easy and regular. Will continue to monitor.
[2018-08-22 07:04] LABS: HEMOGLOBIN 11.5 g/dl (12.0-16.0); MEAN CELL VOLUME 90.2 fl (81.0-99.0); MEAN CORPUSCULAR HGB CONC 31.1 g/dl (33.0-37.0); MEAN PLATELET VOLUME 10.2 fl (9.6-12.3); PLATELET COUNT AUTOMATED 254 10*3/uL (130-400); WHITE BLOOD COUNT 16.1 10*3/uL (4.8-10.8)
[2018-08-22 07:30] LABS: PLATELET SUFFICIENCY NORMAL (NORMAL); TOTAL CELLS COUNTED 100 #CELLS
[2018-08-22 07:31] LABS: BUN 33 mg/dl (7-24); CHLORIDE 102 mmol/L (98-107); CREATININE 1.05 mg/dL (0.55-1.02); POTASSIUM 4.9 mmol/L (3.5-5.1); ROULEAUX SLIGHT; SODIUM 139 mmol/L (136-145)
[2018-08-22 16:00] VITALS: BP 160/50
[2018-08-22 20:00] VITALS: BP 160/58
--- NOTE | 2018-08-22 20:20 | NUR ---
PT RESTING IN BED. RESP-EASY AND REGULAR. OXYGEN IN USE. NO C/O AT THIS TIME. CALL LIGHT IN REACH. LUNGS DIMINISHED T/O. SEE SHIFT ASSESSMENT.
--- NOTE | 2018-08-22 21:55 | NUR ---
RESTING IN BED. TOLERATED ROUTINE MED WITH NO PROBLEM. BSG-358, SEE EMAR. REQUESTING SLEEPING PILL. MEDICATED WITH RESTORIL PO PER PRN ORDER, SEE EMAR. CALL LIGHT IN REACH.
[2018-08-23] VITALS: BP 147/55
--- NOTE | 2018-08-23 00:10 | NUR ---
RESTING IN BED. NO C/O AT THIS TIME. CALL LIGHT IN REACH. SEE SHIFT ASSESSMENT.
--- NOTE | 2018-08-23 01:20 | NUR ---
SLEEPING IN BED. RESP-EASY AND REGULAR. OXYGEN IN USE. MEDICATION SEEMS TO BE EFFECTIVE. CALL LIGHT IN REACH.
--- NOTE | 2018-08-23 04:00 | NUR ---
SLEEPING IN BED. RESP-EASY AND REGULAR. OXYGEN IN USE. CALL LIGHT IN REACH.
--- NOTE | 2018-08-23 06:00 | NUR ---
PT SLEEPING IN BED, AWAKENS EASILY. BSG-251, SEE EMAR. TOLERATED ROUTINE IV MEDICATION. NPO FOR STRESS TEST. NO COVERAGE GIVEN AT THIS TIME. CALL LIGHT IN REACH.
[2018-08-23 06:41] LABS: HEMATOCRIT 38.5 % (37.0-47.0); HEMOGLOBIN 11.7 g/dl (12.0-16.0); MEAN CELL VOLUME 90.6 fl (81.0-99.0); MEAN CORPUSCULAR HGB 27.5 pg (27.0-31.0); MEAN CORPUSCULAR HGB CONC 30.4 g/dl (33.0-37.0); MEAN PLATELET VOLUME 10.2 fl (9.6-12.3); PLATELET COUNT AUTOMATED 262 10*3/uL (130-400); RED BLOOD COUNT 4.25 10*6/uL (4.10-5.10); RED CELL DISTRI WIDTH 13.9 % (0-14.5); WHITE BLOOD COUNT 15.6 10*3/uL (4.8-10.8)
[2018-08-23 07:07] LABS: BUN 33 mg/dl (7-24); CHLORIDE 100 mmol/L (98-107); CREATININE 1.01 mg/dL (0.55-1.02); POTASSIUM 5.1 mmol/L (3.5-5.1); SODIUM 139 mmol/L (136-145)
[2018-08-23 07:14] LABS: PLATELET SUFFICIENCY NORMAL (NORMAL); TOTAL CELLS COUNTED 100 #CELLS
--- NOTE | 2018-08-23 09:00 | NUR ---
case management visits with patient, again discussed with her a discharge plan including VNA. patient declines any servicies at this time
--- NOTE | 2018-08-23 11:39 | NUR ---
PT HAS DRY NONPRODUCTIVE COUGH. NOT PRODUCING SPUTUM.
--- NOTE | 2018-08-23 12:08 | NUR ---
INFORMED SIGNED CONSENT OBTAINED FOR LEXISCAN STRESS TEST WITH DR GARCIA. RESTING EKG NSR HR 60 BP 118/62. PULSE OX 97% ON 4L LUNGS DIMINISHED. PT COMPLETED ONE MINUTE OF A LEXISCAN PROTOCOL WITH PT RECEIVING LEXISCAN 0.4MG IV OVER 10 SECONDS[address] NO ARRHTYMIAS OR ST CHANGES NOTED. PT C/O SOB WITH INJECTION. LAST RECOVERY HR OF 71 BP 122/64. PT IN STABLE CONDITION, AWAITING NUCLEAR IMAGES.
[2018-08-23] MEDS ORDERED: ATORVASTATIN CA40 M1 PO (15:34)
[2018-08-23] MEDS ORDERED: METOPROLOL SUCC25 M2 PO (15:34)
[2018-08-23] MEDS ORDERED: B12,B-12,B 12500 MC1 PO (15:34)
[2018-08-23] MEDS ORDERED: AMLODIPINE BESYL5 MG PO (15:34)
[2018-08-23] MEDS ORDERED: MUCINEX ER600 MG PO (15:34)
[2018-08-23] MEDS ORDERED: PREDNISONE10 MG PO (15:35)
[2018-08-23] MEDS ORDERED: AVPAK AZITHROM250 MG PO (15:35)
--- NOTE | 2018-08-23 16:32 | NUR ---
PT DISCHARGED HOME AT THIS TIME. HEPLOCK AND FASHION DESIGN PROFESSOR DISCONTINUED. FOLLOW UP CARE AND PRESCRIPTIONS DISCUSSED.
== END 2018-08-23 16:32 | disposition home or self-care (01) | DRG 871 ==
LOC: ED 12:28 → 5E 14:36 → EDHOLD 14:36 → 5E 15:11
PROVIDERS: Emergency Medicine; Internal Medicine; Internal Medicine Nephrology; Student in an Organized Health Care Education/Training Program; ADMIT Internal Medicine
PROC: 3E073KZ Introduction of Other Diagnostic Substance into Coronary Artery, Percutaneous Approach (ICD-10-PCS; principal; 2018-08-23)
PROC: 4A02XM4 Measurement of Cardiac Total Activity, External Approach (ICD-10-PCS; principal; 2018-08-23)
DX: A41.9 Sepsis, unspecified organism (principal); J18.9 Pneumonia, unspecified organism; N17.0 Acute kidney failure with tubular necrosis; J96.10 Chronic respiratory failure, unspecified whether with hypoxia or hypercapnia; R74.8 Abnormal levels of other serum enzymes; E86.0 Dehydration; D72.9 Disorder of white blood cells, unspecified; R79.82 Elevated C-reactive protein (CRP); R79.89 Other specified abnormal findings of blood chemistry; J44.9 Chronic obstructive pulmonary disease, unspecified; E11.65 Type 2 diabetes mellitus with hyperglycemia; F32.9 Major depressive disorder, single episode, unspecified; K21.9 Gastro-esophageal reflux disease without esophagitis; F41.9 Anxiety disorder, unspecified; I10 Essential (primary) hypertension; E78.5 Hyperlipidemia, unspecified; Z99.81 Dependence on supplemental oxygen; Z88.8 Allergy status to other drugs, medicaments and biological substances; Z88.5 Allergy status to narcotic agent; Z91.041 Radiographic dye allergy status; Z87.01 Personal history of pneumonia (recurrent); Z87.440 Personal history of urinary (tract) infections; Z90.710 Acquired absence of both cervix and uterus; Z87.891 Personal history of nicotine dependence; Z82.5 Family history of asthma and other chronic lower respiratory diseases; Z83.3 Family history of diabetes mellitus; Z83.1 Family history of other infectious and parasitic diseases; Z79.82 Long term (current) use of aspirin; Z79.899 Other long term (current) drug therapy

== ENCOUNTER 2018-12-10 16:06 | Emergency (ER) | payer OTHER, MEDICAID ==
[~2018-12-10] VITALS: Ht 160 cm; Wt 68.0 kg
[2018-12-10 16:06] VITALS: BP 181/82
[~2018-12-10 16:06] MED LIST changes: +AMLODIPINE BESYL5 MG PO; +ATORVASTATIN CA40 M1 PO; +AVPAK AZITHROM250 MG PO; +B12,B-12,B 12500 MC1 PO; +CYCLOBENZAPRIN7.5 M2 PO; +METOPROLOL SUCC25 M2 PO; +MUCINEX ER600 MG PO
== END 2018-12-10 18:20 | disposition home or self-care (01) ==
LOC: ED 16:06
DX: S00.11XA Contusion of right eyelid and periocular area, initial encounter (principal); S69.92XA Unspecified injury of left wrist, hand and finger(s), initial encounter; S00.81XA Abrasion of other part of head, initial encounter; Z91.041 Radiographic dye allergy status; Z88.5 Allergy status to narcotic agent; Z79.899 Other long term (current) drug therapy; Z79.2 Long term (current) use of antibiotics; Z79.84 Long term (current) use of oral hypoglycemic drugs; Z79.82 Long term (current) use of aspirin; Z90.710 Acquired absence of both cervix and uterus; W17.2XXA Fall into hole, initial encounter; Z87.891 Personal history of nicotine dependence; Y93.89 Activity, other specified; Y92.89 Other specified places as the place of occurrence of the external cause; Y99.8 Other external cause status

== ENCOUNTER 2019-04-16 11:06 | Emergency (ER) | payer OTHER, MEDICAID ==
[~2019-04-16] VITALS: Ht 160 cm; Wt 68.0 kg
--- NOTE | ~2019-04-16 | EKG ---
[place], [place] ELECTROCARDIOGRAM REPORT NAME: NAMRATA LUIS UNIT #: [id number] ROOM: DOCTOR: EPIPHANY DRAFT REPORT BIRTHDATE: [birth year] [facility] Test Date: 2019-04-16 Test Time: 12:00:53 Pat Name: NAMRATA LUIS Department: Room: Gender: F Hand I Tube Bender: Nikky Cortez : 1940 Requested By: IDALMIS BETANCOURT Order Number: [id number] Reading MD: Debbie Cristobal Measurements Intervals [place] Rate: 66 P: 44 NM: 128 QRS: 40 QRSD: 88 T: 65 QT: 397 QTc: 416 Interpretive Statements Sinus rhythm Consider left atrial enlargement Baseline wander in lead(s) V3 Compared to ECG 08/19/2018 19:32:16 Myocardial infarct finding no longer present Electronically Signed On 04-16-2019 12:38:34 PDT by Debbie Cristobal CM:EKGRPT:ELECTROCARDIOGRAM REPORT [id number] 1238 IDALMIS BETANCOURT EPIPHANY DRAFT REPORT IDALMIS BETANCOURT
[2019-04-16 12:00] VITALS: BP 150/68
[2019-04-16] MEDS ORDERED: MEDROL DOSEPAK4 MG PO (12:30)
[2019-04-16] MEDS ORDERED: ROBAXIN500 M1 PO (12:30)
[2019-04-16] MEDS ORDERED: NAPROSYN500 MG PO (12:30)
== END 2019-04-16 13:04 | disposition home or self-care (01) ==
LOC: ED 11:06
DX: R51 Headache (principal); M62.838 Other muscle spasm; M54.2 Cervicalgia; Z88.6 Allergy status to analgesic agent; Z88.8 Allergy status to other drugs, medicaments and biological substances; Z79.899 Other long term (current) drug therapy; Z79.82 Long term (current) use of aspirin; Z87.891 Personal history of nicotine dependence; Z99.81 Dependence on supplemental oxygen; Z91.041 Radiographic dye allergy status

== ENCOUNTER → 2019-09-26 | Outpatient (CLI) | payer OTHER, MEDICAID ==
[~2019-09-26] MED LIST changes: +MEDROL DOSEPAK4 MG PO; +NAPROSYN500 MG PO; +ROBAXIN500 M1 PO; +TYLENOL325 M1 PO
== END | disposition home or self-care (01) ==
LOC: LAB 00:01
DX: D64.9 Anemia, unspecified (principal)

== ENCOUNTER 2019-09-29 13:34 | Emergency (ER) | payer OTHER, MEDICAID ==
[~2019-09-29] VITALS: Ht 162.5 cm; Wt 67.1 kg
[~2019-09-29 13:34] MED LIST changes: -TYLENOL325 M1 PO
[2019-09-29 14:09] VITALS: BP 124/44
[2019-09-29] MEDS ORDERED: TYLENOL325 M1 PO (16:33)
== END 2019-09-29 16:36 | disposition home or self-care (01) ==
LOC: ED 13:34
DX: R52 Pain, unspecified (principal); T36.8X5A Adverse effect of other systemic antibiotics, initial encounter; J44.9 Chronic obstructive pulmonary disease, unspecified; E11.9 Type 2 diabetes mellitus without complications; K21.9 Gastro-esophageal reflux disease without esophagitis; E78.5 Hyperlipidemia, unspecified; I10 Essential (primary) hypertension; M81.0 Age-related osteoporosis without current pathological fracture; Z91.041 Radiographic dye allergy status; Z88.8 Allergy status to other drugs, medicaments and biological substances; Z88.5 Allergy status to narcotic agent; Z79.899 Other long term (current) drug therapy; Z79.2 Long term (current) use of antibiotics; Z79.82 Long term (current) use of aspirin; Z90.710 Acquired absence of both cervix and uterus; Z87.891 Personal history of nicotine dependence; Z86.73 Personal history of transient ischemic attack (TIA), and cerebral infarction without residual deficits; Y92.89 Other specified places as the place of occurrence of the external cause

== ENCOUNTER → 2020-03-06 | Outpatient (CLI) | payer OTHER, MEDICAID ==
[~2020-03-06] MED LIST changes: +TYLENOL325 M1 PO
== END | disposition home or self-care (01) ==
LOC: CARD 12:33
DX: R01.1 Cardiac murmur, unspecified (principal)

== ENCOUNTER → 2020-05-01 | Outpatient (CLI) | payer OTHER, MEDICAID | END | disposition home or self-care (01) | LOC: MAMMO 00:30 | PROVIDERS: ATTEND Physician Assistant | DX: Z12.31 Encounter for screening mammogram for malignant neoplasm of breast (principal) ==

== ENCOUNTER 2020-09-07 12:22 | Emergency (ER) | payer MEDICARE ==
[~2020-09-07] VITALS: Ht 160 cm; Wt 65.8 kg
[2020-09-07 12:33] VITALS: BP 168/58
== END 2020-09-07 19:07 | disposition home or self-care (01) ==
LOC: ED 12:22
DX: S72.001A Fracture of unspecified part of neck of right femur, initial encounter for closed fracture (principal); Z91.041 Radiographic dye allergy status; Z88.8 Allergy status to other drugs, medicaments and biological substances; Z79.899 Other long term (current) drug therapy; Z79.82 Long term (current) use of aspirin; Z87.891 Personal history of nicotine dependence; W18.39XA Other fall on same level, initial encounter; Y93.89 Activity, other specified; Y92.89 Other specified places as the place of occurrence of the external cause; Y99.8 Other external cause status

== ENCOUNTER → 2021-10-11 | Outpatient (CLI) | payer MEDICARE | END | disposition home or self-care (01) | LOC: RAD 14:55 | PROVIDERS: ATTEND Physician Assistant | DX: M47.816 Spondylosis without myelopathy or radiculopathy, lumbar region (principal); M25.78 Osteophyte, vertebrae; M16.12 Unilateral primary osteoarthritis, left hip; R07.81 Pleurodynia; R30.0 Dysuria; M54.50 Low back pain, unspecified; M25.552 Pain in left hip ==

== ENCOUNTER → 2021-10-22 | Outpatient (CLI) | payer OTHER, MEDICAID | END | disposition home or self-care (01) | LOC: US 08:40 | PROVIDERS: ATTEND Physician Assistant | DX: K82.4 Cholesterolosis of gallbladder (principal); K76.0 Fatty (change of) liver, not elsewhere classified ==

== ENCOUNTER 2021-11-04 19:18 | Emergency (ER) | payer OTHER, MEDICAID ==
[~2021-11-04] VITALS: Ht 162.5 cm; Wt 65.8 kg
[2021-11-04 19:24] VITALS: BP 197/62
[2021-11-05] MEDS ORDERED: HYDROCODONE-AC1 EAC1 PO (01:15)
== END 2021-11-05 01:18 | disposition home or self-care (01) ==
LOC: ED 19:18
DX: S62.101A Fracture of unspecified carpal bone, right wrist, initial encounter for closed fracture (principal); S70.01XA Contusion of right hip, initial encounter; J44.9 Chronic obstructive pulmonary disease, unspecified; E11.9 Type 2 diabetes mellitus without complications; K21.9 Gastro-esophageal reflux disease without esophagitis; E78.5 Hyperlipidemia, unspecified; I10 Essential (primary) hypertension; Z91.041 Radiographic dye allergy status; Z88.8 Allergy status to other drugs, medicaments and biological substances; Z79.899 Other long term (current) drug therapy; Z79.82 Long term (current) use of aspirin; Z98.890 Other specified postprocedural states; Z90.710 Acquired absence of both cervix and uterus; Z87.891 Personal history of nicotine dependence; W18.39XA Other fall on same level, initial encounter; Y93.89 Activity, other specified; Y92.89 Other specified places as the place of occurrence of the external cause; Y99.8 Other external cause status

== ENCOUNTER 2022-09-19 19:26 | Emergency (ER) | payer OTHER, MEDICAID ==
[~2022-09-19] VITALS: Ht 160 cm; Wt 68.0 kg
[~2022-09-19 19:26] MED LIST changes: +ALPRAZOLAM0.25 M2 PO; +HYDROCODONE-AC1 EAC1 PO; +JARDIANCE25 MG PO; +OMNICEF300 MG PO; +TRELEGY ELLIPT1 EACH INH
[2022-09-19 20:23] LABS: BASO % 0.3 % (0.0-1.0); EOS # 0.1 10*3/uL (0.0-0.4); EOS % 1.9 % (1.0-4.0); HEMATOCRIT 34.6 % (37.0-47.0); LYMPH % 31.7 % (27.0-41.0); MEAN CORPUSCULAR HGB 28.7 pg (27.0-31.0); MEAN CORPUSCULAR HGB CONC 31.2 g/dl (33.0-37.0); MEAN PLATELET VOLUME 10.3 fl (9.6-12.3); MONO # 0.4 10*3/uL (0.1-1.0); MONO % 11.1 % (3.0-9.0); NEUT # 1.7 10*3/uL (2.3-7.9); NEUT % 53.4 % (47.0-73.0); PLATELET COUNT AUTOMATED 185 10*3/uL (130-400); RED BLOOD COUNT 3.76 10*6/uL (4.10-5.10); WHITE BLOOD COUNT 3.2 10*3/uL (4.8-10.8)
[2022-09-19] MEDS ORDERED: DOXYCYCLINE MO100 MG PO (20:37)
[2022-09-19 20:39] LABS: ALKALINE PHOSPHATASE 62 U/L (46-116); BUN 10 mg/dl (9-23); CHLORIDE 102 mmol/L (98-107); LIPASE 35 U/L (12-53); POTASSIUM 3.6 mmol/L (3.4-5.1); SGPT/ALT 23 U/L (10-49); TOTAL PROTEIN 6.2 gm/dL (6.0-8.0)
[2022-09-19] MEDS ORDERED: NYST SUSP PO (20:53)
[2022-09-19 21:36] VITALS: BP 161/44
== END 2022-09-19 21:28 | disposition home or self-care (01) ==
LOC: ED 19:26
PROVIDERS: Physician Assistant
DX: B37.0 Candidal stomatitis (principal); Z91.041 Radiographic dye allergy status; Z88.5 Allergy status to narcotic agent; Z88.8 Allergy status to other drugs, medicaments and biological substances; Z90.710 Acquired absence of both cervix and uterus; Z98.890 Other specified postprocedural states; Z87.891 Personal history of nicotine dependence

== ENCOUNTER → 2022-11-20 | Outpatient (CLI) | payer OTHER, MEDICAID ==
[~2022-11-20] MED LIST changes: +DOXYCYCLINE MO100 MG PO; +NYST SUSP PO
== END | disposition home or self-care (01) ==
LOC: RAD 13:14
PROVIDERS: ATTEND Physician Assistant
DX: S22.31XA Fracture of one rib, right side, initial encounter for closed fracture (principal); X58.XXXA Exposure to other specified factors, initial encounter; Y93.89 Activity, other specified; Y92.89 Other specified places as the place of occurrence of the external cause; Y99.8 Other external cause status

== ENCOUNTER → 2022-11-25 | Outpatient (CLI) | payer OTHER, MEDICAID | END | disposition home or self-care (01) | LOC: RAD 11:29 | PROVIDERS: ATTEND Physician Assistant | DX: R07.81 Pleurodynia (principal) ==

== ENCOUNTER → 2022-12-04 | Outpatient (CLI) | payer OTHER, MEDICAID | END | disposition home or self-care (01) | LOC: CARD 00:42 | PROVIDERS: ATTEND Physician Assistant | DX: I51.7 Cardiomegaly (principal) ==

== ENCOUNTER 2022-12-14 18:58 | Emergency (ER) | payer OTHER, MEDICAID ==
[~2022-12-14] VITALS: Ht 160 cm; Wt 65.8 kg
[2022-12-14 19:28] VITALS: BP 146/48
[2022-12-14 20:08] LABS: BILIRUBIN Negative (Negative); BLOOD Negative (Negative); CLARITY Clear (Clear); COLOR Yellow (Yellow); GLUCOSE Negative (Negative); KETONE Negative (Negative); LEUKO ESTERASE 2+ (Negative); NITRITE Negative (Negative); SPECIFIC GRAVITY 1.015 (1.001-1.030); UROBILINOGEN 0.2 E.U./dl (0.0-1.0)
[2022-12-14 20:28] LABS: RBC 0-2 rbc/hpf (0-2); WBC 21-30 wbc/hpf (0-5)
[2022-12-14] MEDS ORDERED: METHOCARBAMOL500 M1 PO (20:40)
[2022-12-14] MEDS ORDERED: MACRODANTIN50 MG PO (20:40)
== END 2022-12-14 20:57 | disposition home or self-care (01) ==
LOC: ED 18:58
PROVIDERS: Internal Medicine
DX: S39.012A Strain of muscle, fascia and tendon of lower back, initial encounter (principal); N39.0 Urinary tract infection, site not specified; Z91.041 Radiographic dye allergy status; Z88.5 Allergy status to narcotic agent; Z88.8 Allergy status to other drugs, medicaments and biological substances; Z90.710 Acquired absence of both cervix and uterus; Z98.890 Other specified postprocedural states; Z87.891 Personal history of nicotine dependence; X50.9XXA Other and unspecified overexertion or strenuous movements or postures, initial encounter; Y93.89 Activity, other specified; Y92.89 Other specified places as the place of occurrence of the external cause; Y99.8 Other external cause status

== ENCOUNTER → 2023-06-04 | Outpatient (CLI) | payer OTHER, MEDICAID ==
[~2023-06-04] MED LIST changes: +MACRODANTIN50 MG PO; +METHOCARBAMOL500 M1 PO
== END | disposition home or self-care (01) ==
LOC: NM 09:22
PROVIDERS: ATTEND Orthopaedic Surgery
DX: M25.551 Pain in right hip (principal); Z96.641 Presence of right artificial hip joint

== ENCOUNTER → 2023-06-16 | Outpatient (CLI) | payer OTHER, MEDICAID ==
[2023-06-16 14:23] LABS: BASO % 0.3 % (0.0-1.0); EOS # 0.2 10*3/uL (0.0-0.4); EOS % 1.8 % (1.0-4.0); HEMATOCRIT 37.4 % (37.0-47.0); LYMPH # 2.2 10*3/uL (1.3-4.4); LYMPH % 22.7 % (27.0-41.0); MEAN CELL VOLUME 92.3 fl (81.0-99.0); MEAN CORPUSCULAR HGB 29.4 pg (27.0-31.0); MEAN CORPUSCULAR HGB CONC 31.8 g/dl (33.0-37.0); MEAN PLATELET VOLUME 9.7 fl (9.6-12.3); MONO # 0.8 10*3/uL (0.1-1.0); MONO % 8.8 % (3.0-9.0); NEUT # 6.2 10*3/uL (2.3-7.9); NEUT % 65.6 % (47.0-73.0); PLATELET COUNT AUTOMATED 323 10*3/uL (130-400); RED BLOOD COUNT 4.05 10*6/uL (4.10-5.10); WHITE BLOOD COUNT 9.5 10*3/uL (4.8-10.8)
== END | disposition home or self-care (01) ==
LOC: LAB 14:07
PROVIDERS: ATTEND Orthopaedic Surgery
DX: G89.18 Other acute postprocedural pain (principal); M25.551 Pain in right hip; Z96.641 Presence of right artificial hip joint

== ENCOUNTER 2023-08-05 14:11 | Inpatient (IN) | payer OTHER, MEDICAID ==
[~2023-08-05] VITALS: Ht 160 cm; Wt 69.5 kg
[2023-08-05 14:33] VITALS: BP 134/56
[2023-08-05 15:11] LABS: BASO % 0.1 % (0.0-1.0); LYMPH # 0.7 10*3/uL (1.3-4.4); LYMPH % 5.4 % (27.0-41.0); MEAN CELL VOLUME 89.5 fl (81.0-99.0); MEAN CORPUSCULAR HGB 29.2 pg (27.0-31.0); MEAN CORPUSCULAR HGB CONC 32.6 g/dl (33.0-37.0); MEAN PLATELET VOLUME 9.4 fl (9.6-12.3); MONO # 0.7 10*3/uL (0.1-1.0); NEUT % 88.5 % (47.0-73.0); PLATELET COUNT AUTOMATED 343 10*3/uL (130-400); WHITE BLOOD COUNT 13.5 10*3/uL (4.8-10.8)
[2023-08-05 15:23] LABS: ACT PARTIAL THROMBO TIME 27.9 SECONDS (20.0-32.1)
[2023-08-05 15:36] LABS: POTASSIUM 4.2 mmol/L (3.4-5.1); TOTAL PROTEIN 6.9 gm/dL (6.0-8.0)
[2023-08-05 18:29] VITALS: BP 130/56
[2023-08-05] MEDS ORDERED: BENADRYL ALLERG25 M5 PO (21:47)
[2023-08-05 22:55] VITALS: BP 106/53
[2023-08-06 00:19] VITALS: BP 113/72
[2023-08-06 00:35] VITALS: BP 138/64
[2023-08-06 05:41] LABS: BUN 19 mg/dl (9-23); CHLORIDE 100 mmol/L (98-107)
[2023-08-06 06:11] LABS: BASO % 0.1 % (0.0-1.0); LYMPH # 0.9 10*3/uL (1.3-4.4); LYMPH % 5.1 % (27.0-41.0); MEAN CELL VOLUME 91.4 fl (81.0-99.0); MEAN CORPUSCULAR HGB 28.7 pg (27.0-31.0); MEAN CORPUSCULAR HGB CONC 31.4 g/dl (33.0-37.0); MONO # 0.9 10*3/uL (0.1-1.0); MONO % 4.7 % (3.0-9.0); NEUT # 16.1 10*3/uL (2.3-7.9); NEUT % 88.4 % (47.0-73.0); PLATELET COUNT AUTOMATED 440 10*3/uL (130-400); RED BLOOD COUNT 3.94 10*6/uL (4.10-5.10); RED CELL DISTRI WIDTH 13.1 % (0-14.5); WHITE BLOOD COUNT 18.2 10*3/uL (4.8-10.8)
[2023-08-06 08:00] VITALS: BP 136/53
[2023-08-06 12:00] VITALS: BP 127/63
[2023-08-06 16:00] VITALS: BP 164/57
[2023-08-06 20:00] VITALS: BP 120/45
[2023-08-07] VITALS: BP 121/47
[2023-08-07 06:09] LABS: MEAN CELL VOLUME 93.8 fl (81.0-99.0); MEAN CORPUSCULAR HGB 28.9 pg (27.0-31.0); MEAN CORPUSCULAR HGB CONC 30.8 g/dl (33.0-37.0); MEAN PLATELET VOLUME 9.9 fl (9.6-12.3); PLATELET COUNT AUTOMATED 531 10*3/uL (130-400); RED BLOOD COUNT 4.05 10*6/uL (4.10-5.10); RED CELL DISTRI WIDTH 13.2 % (0-14.5); WHITE BLOOD COUNT 22.5 10*3/uL (4.8-10.8)
[2023-08-07 06:19] LABS: MANUAL DIFF REFLEX YES
[2023-08-07 07:37] LABS: PLATELET SUFFICIENCY HIGH (NORMAL); TOTAL CELLS COUNTED 100 #CELLS
[2023-08-07 08:00] VITALS: BP 124/54
[2023-08-07 12:00] VITALS: BP 154/52
[2023-08-07 16:00] VITALS: BP 127/55
[2023-08-07 20:00] VITALS: BP 145/47
[2023-08-08] VITALS: BP 151/52
[2023-08-08 06:40] LABS: HEMATOCRIT 38.4 % (37.0-47.0); MEAN CELL VOLUME 93.7 fl (81.0-99.0); MEAN CORPUSCULAR HGB 28.8 pg (27.0-31.0); MEAN CORPUSCULAR HGB CONC 30.7 g/dl (33.0-37.0); MEAN PLATELET VOLUME 9.8 fl (9.6-12.3); PLATELET COUNT AUTOMATED 543 10*3/uL (130-400); RED CELL DISTRI WIDTH 13.4 % (0-14.5); WHITE BLOOD COUNT 19.8 10*3/uL (4.8-10.8)
[2023-08-08 06:52] LABS: MANUAL DIFF REFLEX YES
[2023-08-08 07:00] LABS: POTASSIUM 5.3 mmol/L (3.4-5.1)
[2023-08-08 07:36] LABS: PLATELET SUFFICIENCY HIGH (NORMAL); TOTAL CELLS COUNTED 100 #CELLS
[2023-08-08 08:00] VITALS: BP 124/51
[2023-08-08 12:00] VITALS: BP 146/55
[2023-08-08 16:00] VITALS: BP 137/56
[2023-08-08 20:00] VITALS: BP 128/54
[2023-08-09] VITALS: BP 148/58
[2023-08-09 06:16] LABS: HEMATOCRIT 33.7 % (37.0-47.0); MEAN CELL VOLUME 92.3 fl (81.0-99.0); MEAN CORPUSCULAR HGB 28.8 pg (27.0-31.0); MEAN CORPUSCULAR HGB CONC 31.2 g/dl (33.0-37.0); MEAN PLATELET VOLUME 9.7 fl (9.6-12.3); PLATELET COUNT AUTOMATED 473 10*3/uL (130-400); RED BLOOD COUNT 3.65 10*6/uL (4.10-5.10); RED CELL DISTRI WIDTH 13.3 % (0-14.5); WHITE BLOOD COUNT 18.4 10*3/uL (4.8-10.8)
[2023-08-09 06:30] LABS: BUN 30 mg/dl (9-23); CHLORIDE 101 mmol/L (98-107); POTASSIUM 5.3 mmol/L (3.4-5.1)
[2023-08-09 06:37] LABS: MANUAL DIFF REFLEX YES
[2023-08-09 07:28] LABS: PLATELET SUFFICIENCY HIGH (NORMAL); TOTAL CELLS COUNTED 100 #CELLS
[2023-08-09 08:00] VITALS: BP 121/67
[2023-08-09 12:00] VITALS: BP 153/76
[2023-08-09 16:00] VITALS: BP 108/55
[2023-08-09 20:00] VITALS: BP 118/58
[2023-08-10] VITALS: BP 151/43
[2023-08-10 06:05] LABS: BUN 34 mg/dl (9-23); CHLORIDE 101 mmol/L (98-107); POTASSIUM 5.2 mmol/L (3.4-5.1)
[2023-08-10 06:20] LABS: HEMATOCRIT 33.1 % (37.0-47.0); MEAN CELL VOLUME 93.5 fl (81.0-99.0); MEAN CORPUSCULAR HGB 28.5 pg (27.0-31.0); MEAN CORPUSCULAR HGB CONC 30.5 g/dl (33.0-37.0); MEAN PLATELET VOLUME 9.8 fl (9.6-12.3); PLATELET COUNT AUTOMATED 474 10*3/uL (130-400); RED BLOOD COUNT 3.54 10*6/uL (4.10-5.10); RED CELL DISTRI WIDTH 13.2 % (0-14.5); WHITE BLOOD COUNT 19.2 10*3/uL (4.8-10.8)
[2023-08-10 06:27] LABS: MANUAL DIFF REFLEX YES
[2023-08-10 07:00] LABS: TOTAL CELLS COUNTED 100 #CELLS
[2023-08-10 07:01] LABS: OVALOCYTES FEW; PLATELET SUFFICIENCY HIGH (NORMAL)
[2023-08-10 08:00] VITALS: BP 158/58
[2023-08-10 12:00] VITALS: BP 151/50
[2023-08-10 16:00] VITALS: BP 126/61
[2023-08-10 17:30] LABS: ABG BASE EXCESS -0.8 mmol/L (-2.0-2.0); ARTERIAL BLOOD GAS PH 7.392 (7.35-7.45)
[2023-08-10 20:00] VITALS: BP 130/48
[2023-08-11] VITALS: BP 150/53
[2023-08-11 06:16] LABS: BUN 33 mg/dl (9-23); CHLORIDE 99 mmol/L (98-107); POTASSIUM 4.5 mmol/L (3.4-5.1)
[2023-08-11 06:39] LABS: MEAN CELL VOLUME 91.9 fl (81.0-99.0); MEAN CORPUSCULAR HGB 28.9 pg (27.0-31.0); MEAN CORPUSCULAR HGB CONC 31.5 g/dl (33.0-37.0); MEAN PLATELET VOLUME 9.8 fl (9.6-12.3); PLATELET COUNT AUTOMATED 487 10*3/uL (130-400); RED CELL DISTRI WIDTH 13.5 % (0-14.5); WHITE BLOOD COUNT 19.7 10*3/uL (4.8-10.8)
[2023-08-11 06:42] LABS: MANUAL DIFF REFLEX YES
[2023-08-11 07:13] LABS: TOTAL CELLS COUNTED 100 #CELLS
[2023-08-11 07:14] LABS: OVALOCYTES FEW; PLATELET SUFFICIENCY HIGH (NORMAL); POLYCHROMASIA SLIGHT; TOXIC GRANULATION SLIGHT
[2023-08-11 08:00] VITALS: BP 127/50
[2023-08-11] MEDS ORDERED: DOXYCYCLINE HY100 M3 PO (11:37)
[2023-08-11] MEDS ORDERED: PREDNISONE10 MG PO (11:37)
[2023-08-11] MEDS ORDERED: MUCINEX1200 M1 PO (11:37)
[2023-08-11 12:00] VITALS: BP 125/68
== END 2023-08-11 14:50 | disposition home or self-care (01) | DRG 871 ==
LOC: ED 14:11 → EDHOLD 18:15 → 4E 18:15
PROVIDERS: Family Medicine; Internal Medicine; Internal Medicine Critical Care Medicine; Nurse Practitioner Family; Student in an Organized Health Care Education/Training Program; ADMIT Internal Medicine; ATTEND Internal Medicine
DX: A41.9 Sepsis, unspecified organism (principal); J18.9 Pneumonia, unspecified organism; N17.0 Acute kidney failure with tubular necrosis; J44.1 Chronic obstructive pulmonary disease with (acute) exacerbation; J44.0 Chronic obstructive pulmonary disease with (acute) lower respiratory infection; J96.11 Chronic respiratory failure with hypoxia; J98.11 Atelectasis; E87.3 Alkalosis; E83.42 Hypomagnesemia; D64.9 Anemia, unspecified; E78.5 Hyperlipidemia, unspecified; I25.10 Atherosclerotic heart disease of native coronary artery without angina pectoris; I10 Essential (primary) hypertension; M81.0 Age-related osteoporosis without current pathological fracture; F32.A Depression, unspecified; R65.20 Severe sepsis without septic shock; E11.69 Type 2 diabetes mellitus with other specified complication; F41.9 Anxiety disorder, unspecified; F32.9 Major depressive disorder, single episode, unspecified; R13.19 Other dysphagia; D75.839 Thrombocytosis, unspecified; J20.9 Acute bronchitis, unspecified; E11.65 Type 2 diabetes mellitus with hyperglycemia; Z91.041 Radiographic dye allergy status; Z90.710 Acquired absence of both cervix and uterus; Z99.81 Dependence on supplemental oxygen; Z87.891 Personal history of nicotine dependence; Z83.6 Family history of other diseases of the respiratory system; Z82.49 Family history of ischemic heart disease and other diseases of the circulatory system

== ENCOUNTER 2023-09-14 15:05 | Emergency (ER) | payer OTHER, MEDICAID ==
[~2023-09-14] VITALS: Ht 160 cm; Wt 68.0 kg
[~2023-09-14 15:05] MED LIST changes: +BENADRYL ALLERG25 M5 PO; +DOXYCYCLINE HY100 M3 PO; +MUCINEX1200 M1 PO
[2023-09-14 15:28] VITALS: BP 132/43
== END 2023-09-14 17:27 | disposition home or self-care (01) ==
LOC: ED 15:05
DX: S69.92XA Unspecified injury of left wrist, hand and finger(s), initial encounter (principal); S81.012A Laceration without foreign body, left knee, initial encounter; J44.9 Chronic obstructive pulmonary disease, unspecified; F41.9 Anxiety disorder, unspecified; F32.A Depression, unspecified; E83.42 Hypomagnesemia; D64.9 Anemia, unspecified; E11.65 Type 2 diabetes mellitus with hyperglycemia; I10 Essential (primary) hypertension; E78.5 Hyperlipidemia, unspecified; K21.9 Gastro-esophageal reflux disease without esophagitis; Z86.73 Personal history of transient ischemic attack (TIA), and cerebral infarction without residual deficits; Z91.041 Radiographic dye allergy status; Z88.5 Allergy status to narcotic agent; Z98.890 Other specified postprocedural states; Z90.710 Acquired absence of both cervix and uterus; Z95.5 Presence of coronary angioplasty implant and graft; Z87.891 Personal history of nicotine dependence; W00.0XXA Fall on same level due to ice and snow, initial encounter; Y93.89 Activity, other specified; Y92.89 Other specified places as the place of occurrence of the external cause; Y99.8 Other external cause status

== ENCOUNTER → 2023-10-27 | Outpatient (CLI) | payer OTHER, MEDICAID | END | disposition home or self-care (01) | LOC: US 08:30 | PROVIDERS: ATTEND Physician Assistant | DX: I65.23 Occlusion and stenosis of bilateral carotid arteries (principal); K82.4 Cholesterolosis of gallbladder ==

== ENCOUNTER 2024-03-11 08:41 | Emergency (ER) | payer OTHER, MEDICAID ==
[~2024-03-11] VITALS: Ht 160 cm; Wt 70.3 kg
[2024-03-11 08:45] VITALS: BP 125/62
[2024-03-11] MEDS ORDERED: Acetaminophen/Oxycodone 5 MG/325 MG TABLET PO ONE (08:50)
[2024-03-11] MEDS ORDERED: PERCOCET 5-3251 EACH PO (09:57)
== END 2024-03-11 11:25 | disposition home or self-care (01) ==
LOC: ED 08:41
DX: S42.211A Unspecified displaced fracture of surgical neck of right humerus, initial encounter for closed fracture (principal); S09.90XA Unspecified injury of head, initial encounter; J44.9 Chronic obstructive pulmonary disease, unspecified; I10 Essential (primary) hypertension; E11.9 Type 2 diabetes mellitus without complications; E78.00 Pure hypercholesterolemia, unspecified; Z91.041 Radiographic dye allergy status; Z88.8 Allergy status to other drugs, medicaments and biological substances; Z88.5 Allergy status to narcotic agent; Z79.899 Other long term (current) drug therapy; Z79.2 Long term (current) use of antibiotics; Z98.890 Other specified postprocedural states; Z90.710 Acquired absence of both cervix and uterus; Z87.891 Personal history of nicotine dependence; W18.09XA Striking against other object with subsequent fall, initial encounter; Y93.89 Activity, other specified; Y92.89 Other specified places as the place of occurrence of the external cause; Y99.8 Other external cause status

== ENCOUNTER → 2024-03-16 | Outpatient (CLI) | payer OTHER, MEDICAID ==
[~2024-03-16] MED LIST changes: +PERCOCET 5-3251 EACH PO
== END | disposition home or self-care (01) ==
LOC: RAD 09:48
PROVIDERS: ATTEND Orthopaedic Surgery
DX: S42.301D Unspecified fracture of shaft of humerus, right arm, subsequent encounter for fracture with routine healing (principal); M17.12 Unilateral primary osteoarthritis, left knee; M25.462 Effusion, left knee; X58.XXXD Exposure to other specified factors, subsequent encounter

== ENCOUNTER → 2024-03-22 | Outpatient (CLI) | payer OTHER, MEDICAID | END | disposition home or self-care (01) | LOC: MRI 02:12 | PROVIDERS: ATTEND Orthopaedic Surgery | DX: S83.242A Other tear of medial meniscus, current injury, left knee, initial encounter (principal); S82.125A Nondisplaced fracture of lateral condyle of left tibia, initial encounter for closed fracture; M25.462 Effusion, left knee; M76.52 Patellar tendinitis, left knee; X58.XXXA Exposure to other specified factors, initial encounter; Y93.89 Activity, other specified; Y92.89 Other specified places as the place of occurrence of the external cause; Y99.8 Other external cause status ==

== ENCOUNTER → 2024-04-27 | Outpatient (CLI) | payer OTHER, MEDICAID | END | disposition home or self-care (01) | LOC: ORTHO 00:24 | PROVIDERS: ATTEND Orthopaedic Surgery | DX: S82.092D Other fracture of left patella, subsequent encounter for closed fracture with routine healing (principal); S42.221D 2-part displaced fracture of surgical neck of right humerus, subsequent encounter for fracture with routine healing; M76.892 Other specified enthesopathies of left lower limb, excluding foot; M17.12 Unilateral primary osteoarthritis, left knee; X58.XXXD Exposure to other specified factors, subsequent encounter ==

== ENCOUNTER 2024-09-24 15:10 | Emergency (ER) | payer MEDICARE, MEDICAID ==
[~2024-09-24] VITALS: Ht 160 cm; Wt 68.9 kg
[2024-09-24 15:26] VITALS: BP 70/53
[2024-09-24] MEDS ORDERED: Acetaminophen/Oxycodone 5 MG/325 MG TABLET PO ONE (15:45)
[2024-10-04] MEDS ORDERED: DOXYCYCLINE HY100 M3 PO (10:11)
[2024-10-04] MEDS ORDERED: OXYGEN NAS (10:12)
== END 2024-09-24 16:16 | disposition home or self-care (01) ==
LOC: ED 15:10
DX: S83.91XA Sprain of unspecified site of right knee, initial encounter (principal); J44.9 Chronic obstructive pulmonary disease, unspecified; E11.9 Type 2 diabetes mellitus without complications; I10 Essential (primary) hypertension; E78.5 Hyperlipidemia, unspecified; F32.A Depression, unspecified; F41.9 Anxiety disorder, unspecified; Z91.041 Radiographic dye allergy status; Z88.5 Allergy status to narcotic agent; Z88.8 Allergy status to other drugs, medicaments and biological substances; Z79.899 Other long term (current) drug therapy; Z90.711 Acquired absence of uterus with remaining cervical stump; Z98.890 Other specified postprocedural states; Z87.891 Personal history of nicotine dependence; W18.09XA Striking against other object with subsequent fall, initial encounter; Y93.89 Activity, other specified; Y92.89 Other specified places as the place of occurrence of the external cause; Y99.8 Other external cause status